=== PATIENT | female | born 2000 | race Caucasian/White ===

== ENCOUNTER 2022-01-05 22:53 | Emergency (ER) | payer OTHER, SELFPAY ==
[2022-01-05 23:04] VITALS: BP 115/54; PULSE 74; RESP 15; TEMP 36.5; O2SAT 99; BMI 23.1
--- NOTE | 2022-01-06 02:00 | ED.SKABFB ---
HPI - Skin/Abscess/Foreign Bdy General Chief complaint: Skin/Abscess/Foreign Body Stated complaint: Sting or bite on left foot Time Seen by Provider: 01/05/22 22:54 Source: patient Mode of arrival: Ambulatory Limitations: no limitations History of Present Illness HPI narrative: 21-year-old female nonsmoker without any chronic medical history presents for evaluation of a bite on her left foot followed by swelling of much of her left foot and itching. She denies any pain and did not see whatever bit her. She does state that about 1 week ago she was stung by a bee however and has on occasion had impressive reactions to these bites and stings. She denies any face, tongue, lip or throat swelling. She has no trouble swallowing or breathing and denies any wheeze or rash. Related Data Allergies Allergy/AdvReac Type Severity Reaction Status Date / Time No Known Drug Allergies Allergy Verified 01/05/22 23:07 Review of Systems Review of Systems Narrative: GENERAL: Denies chills, fatigue, malaise, fever, sweats. HEENT: Denies sinus pain, ear pain, sore throat, difficulty swallowing, dizziness. RESPIRATORY: Denies dyspnea, cough, wheezing, hemoptysis, sputum. CARDIOVASCULAR: Denies chest pain, palpitations, orthopnea, edema, GASTROINTESTINAL: Denies nausea, vomiting, abdominal pain, diarrhea, constipation, melena. : Denies dysuria, frequency, incontinence, hematuria, urinary retention. MUSCULOSKELETAL: denies weakness, joint pain, or bony pain SKIN: See HPI NEUROLOGIC: Denies weakness, headache, numbness, change in speech, confusion, seizures, incoordination. PSYCHIATRIC: No concerning psychosocial issues. 12 point review of systems is negative except for those stated above Patient History Social History Smoking Status: Never smoker Smoking Status: Never smoker alcohol intake frequency: 0-2 drinks per day Substance Use Type: does not use Exam Narrative Exam Narrative: GENERAL: [21] year old patient appears stated age. Well-developed patient, in mild distress. HEAD: Atraumatic. Normocephalic. EYES: Pupils equal round and reactive. Extraocular motions intact. No scleral icterus. No injection or drainage. ENT: Nose without bleeding, purulent drainage. Throat without erythema, tonsillar hypertrophy or exudate. Airway patent. NECK: Trachea midline. Non tender CARDIOVASCULAR: Regular rate and rhythm without murmurs, gallops, or rubs. RESPIRATORY: Clear to auscultation. Breath sounds equal bilaterally. No wheezes, rales, or rhonchi. GASTROINTESTINAL: Abdomen soft, non-tender, nondistended. EXTREMITIES: Left foot with erythema pruritus and swelling of the forefoot including toes. It is soft and nontender without induration or fluctuance. There are no obvious breaks in the skin but if she forcefully flexes her great toe you can see an area of pallor and slightly increased swelling where she thinks she was stung or bitten. There is no drainage or lymphangitis BACK: Nontender without deformity or crepitance. No flank tenderness. NEURO: AOx3. SKIN: No rash or erythema of visible areas Initial Vital Signs Initial Vital Signs: Vital Signs Temperature 97.7 F 01/05/22 23:04 Pulse Rate 74 01/05/22 23:04 Respiratory Rate 15 01/05/22 23:04 Blood Pressure 115/54 L 01/05/22 23:04 Pulse Oximetry 99 01/05/22 23:04 Oxygen Delivery Method 01/05/22 23:04 Course Vital Signs Vital signs: Vital Signs - 8 hr 01/05/22 23:04 Temperature 97.7 F Pulse Rate 74 Respiratory Rate 15 Blood Pressure 115/54 L Pulse Oximetry 99 Oxygen Delivery Method Room Air MDM - Skin/Abscess/Foreign Bdy MDM Narrative Medical decision making narrative: Patient with itching, swelling and redness after an insect bite of her left foot has no signs of anaphylaxis, tongue, face or lip swelling, difficulty swallowing or breathing. Infection considered but thought unlikely given lack of pain, lymphangitis. We discussed antibiotics versus antihistamines and agree that [id number] antihistamines, compression and elevation is most appropriate for now. She is given return precautions and has had questions answered to her apparent satisfaction Discharge Plan Departure Patient Disposition: Home Clinical Impression: Insect bites Instructions: DI for Insect Bites and Stings Activity Restrictions/Additional Instructions: *You have been diagnosed with [redness and swelling likely a reaction to bug bite *What to do: *Please consider the routine use of over the counter antihistamines over the next few days 1. H1 blockers: Benadryl (Diphenhydramine), Zyrtec (Cetirizine), Gayatri (Fexofenadine) or Claritin (Loratadine) along with, 2. H2 blockers: Famotidine or Cimetidine *If you can please avoid what triggered your reaction today *Please follow up with your primary care provider in 2-3 days, call for an appointment. Let them know you were seen in the Emergency Department and that we ask that you be seen in follow up. We will electronically transmit a record of today's note if your PCP is in our system * please consider wearing a compression sock and elevating her foot as much as possible over the next few days and I would expect this to continue to improve *Return to Emergency Department if you should have any new, worsening or concerning symptoms, such as swelling of tongue, throat, trouble breathing, or other concerning symptoms Visit Report Forms: Patient Portal/API
== END 2022-01-05 23:31 | disposition home or self-care (01) ==
PROVIDERS: Emergency Provider Emergency Medicine
DX: S90.862A Insect bite (nonvenomous), left foot, initial encounter (principal)
CPT/HCPCS: 99281

== ENCOUNTER → 2022-10-25 15:22 | Outpatient (CLI) | payer OTHER, SELFPAY ==
--- NOTE | 2022-10-25 | DI.MRI.S_ITS ---
PROCEDURE: MR LUMBAR SPINE WO CON INDICATIONS: Low back pain TECHNIQUE: Noncontrast sagittal T1 spin echo and T2 fast echo, sagittal STIR, and T2 fast spin echo through the lumbar spine. In cases with scoliosis, additional coronal T2 fast spin echo may be performed. COMPARISON: None. FINDINGS: Image quality: Excellent. Alignment and Curvature: There is normal bony alignment. Bone Marrow: Marrow is of normal overall signal. No acute vertebral body compression fractures. A benign hemangioma is noted in the S2 vertebral body. Spinal Cord: Conus medullaris terminates at the L1 level. Visualized cord demonstrates normal signal and size. Paraspinous Soft Tissues: No paravertebral masses. The paraspinous musculature is normal in bulk. Discs: No significant disc bulging, spinal canal stenosis, or neural foraminal narrowing is seen at any level in the lumbar spine. IMPRESSION: Lumbar spine MRI is within normal limits Approved by: Keyon Hutchins M.D. on 10/25/2022 at 22:17 .
== END ==
DX: M54.50 Low back pain, unspecified (principal)
CPT/HCPCS: 72148

== ENCOUNTER 2022-12-17 12:45 | Outpatient (RCR) | payer OTHER, SELFPAY ==
--- NOTE | 2022-11-19 22:32 | PT.OIE ---
Current Diagnoses Unspecified dyspareunia (11/19/22) Visit Care Team Role Provider Type Eric Mann Attending Provider Non-Staff Family Provider Primary Care Provider Referring Provider Specialty: Medical Address: [address] [place] [address], On license of [facility] Email: Physical Therapy Initial Evaluation PT-OP-A Visit Information Start: 11/18/22 16:28 Freq: Status: Active Protocol: Document 11/19/22 07:32 AMB (Rec: 11/19/22 08:23 AMB [id number]) Out-Patient Physical Therapy Visit Information Visit Information Visit Type Initial Evaluation Visit Start Time 07:30 Visit Stop Time 08:15 Total Visit Minutes 45 Visit Number 1 PT-OP-B Current Condition Start: 11/18/22 16:28 Freq: Status: Active Protocol: Document 11/19/22 07:32 AMB (Rec: 11/19/22 08:23 AMB [id number]) Current Condition History of Current Condition Onset Date 2.5 years ago Current Complaints dyspareunia History of Current Condition Notes dyspareunia is usually with deeper penetration. Didn 't really find a pattern with positions, has been a probelm with 2 different partners now. Sometimes can stop for a littel bit and pain would subside. Back pain started 4 years ago. Has had a lot of UTIs. Personal Factors Other Personal Factors That May Effect Multiple UTI history, low back Therapy/Recovery pain, current active duty PT-OP-I Pelvic Floor Start: 11/18/22 16:28 Freq: Status: Active Protocol: Document 11/19/22 07:32 AMB (Rec: 11/23/22 22:30 AMB [id number]) Pelvic Floor Assessment Urine Pelvic Floor Surgery No Leakage Cause Cough,Sneeze Pelvic Clock Pelvic Clock 12-3 Guarding,Tenderness,Tightness Pelvic Clock 3-6 Guarding,Tenderness,Tightness Pelvic Clock 6-9 Guarding,Tenderness,Tightness Pelvic Clock 9-12 Guarding,Tenderness,Tightness Pelvic Clock Other pt rated pain with moderate palpation pressure as 4/10 Contraction Ability Manual Muscle Testing Left 3 Manual Muscle Testing Right 3 Manual Muscle Testing Anterior 3 Manual Muscle Testing Posterior 3 PT-OP-T Assessment and Plan Start: 11/18/22 16:28 Freq: Status: Active Protocol: Document 11/19/22 07:32 AMB (Rec: 11/23/22 22:30 [facility] [id number]) Physical Therapy Assessment Rehab Potential Rehabilitation Potential Good Evaluation Complexity Number of Personal Factors/Comorbidities 1-2 Number of Body Systems Impaired 1-2 Clinical Presentation at Evaluation Stable Impairments Impairments Pain Goals Two Impairment HEP Retirement Goal (LTG) Carmella will be independent with a HEP including vaginal dilator , pelvic floor stretching and appropriate strengthening program. LTG Duration 10 weeks One Impairment dyspareunia Short Term Goal (STG) Pt will report 2/10 pain or less with internal vaginal palpation of levator ani bilaterally. STG Duration 4 weeks Retirement Goal (LTG) Pt will try tolerate the intercourse of her choice with pain of 1/10. LTG Duration 10 weeks Assessment Summary Assessment Carmella attends physical therapy with a multi year multiple partner history of dyspareunia , she also notes very occassional SHAYNE with cough/ sneeze. She does have a history of multiple UTIs, no childbirth history. She presented with pain bilateral although worse on the right with palpation of the levator ani. She was given a vaginal dilator with instruction in use. She does exercise regularly and reports that she does hip stretches consistently due to history of back pain. She will benefit from physical therapy to help her manage her dyspareunia symptoms and manage the pain and tightness in her pelvic floor. Physical Therapy Plan Frequency and Duration Frequency of Treatment 1x/Week Duration of treatment (weeks) 10 Plan of Care Start Date 11/19/22 Plan of Care End Date 01/28/23 Therapeutic Interventions Therapeutic Interventions Home Exercise Program,Manual Therapy,Neuromuscular Re- education,Self-Care/Home Management,Soft Tissue Mobilization,Therapeutic Activities,Therapeutic Exercises Modalities Biofeedback,Cold Pack/Ice Massage,Electric Stimulation, Hot Packs Next Visit Focus/Plan Next Note Type Treatment Note Next Visit Plan Manual therapy, reassess dilator, review SHAYNE tx
--- NOTE | 2022-11-19 22:33 | PT.OPPOC ---
Physical, Occupational & Speech Therapy At [facility] Current Diagnoses Unspecified dyspareunia (11/19/22) Visit Care Team Role Provider Type Eric Mann Attending Provider Non-Staff Family Provider Primary Care Provider Referring Provider Specialty: Medical Address: [address] [place] [address], [id number] Email: Plan Of Care PT-OP-T Assessment and Plan Start: 11/18/22 16:28 Freq: Status: Active Protocol: Document 11/19/22 07:32 AMB (Rec: 11/23/22 22:30 AMB [id number]) Physical Therapy Assessment Rehab Potential Rehabilitation Potential Good Evaluation Complexity Number of Personal Factors/Comorbidities 1-2 Number of Body Systems Impaired 1-2 Clinical Presentation at Evaluation Stable Impairments Impairments Pain Goals Two Impairment HEP Usp Goal (LTG) Carmella will be independent with a HEP including vaginal dilator , pelvic floor stretching and appropriate strengthening program. LTG Duration 10 weeks One Impairment dyspareunia Short Term Goal (STG) Pt will report 2/10 pain or less with internal vaginal palpation of levator ani bilaterally. STG Duration 4 weeks [employer] Operator Goal (LTG) Pt will try tolerate the intercourse of her choice with pain of 1/10. LTG Duration 10 weeks Assessment Summary Assessment Carmella attends physical therapy with a multi year multiple partner history of dyspareunia , she also notes very occassional SHAYNE with cough/ sneeze. She does have a history of multiple UTIs, no childbirth history. She presented with pain bilateral although worse on the right with palpation of the levator ani. She was given a vaginal dilator with instruction in use. She does exercise regularly and reports that she does hip stretches consistently due to history of back pain. She will benefit from physical therapy to help her manage her dyspareunia symptoms and manage the pain and tightness in her pelvic floor. Physical Therapy Plan Frequency and Duration Frequency of Treatment 1x/Week Duration of treatment (weeks) 10 Plan of Care Start Date 11/19/22 Plan of Care End Date 01/28/23 Therapeutic Interventions Therapeutic Interventions Home Exercise Program,Manual Therapy,Neuromuscular Re- education,Self-Care/Home Management,Soft Tissue Mobilization,Therapeutic Activities,Therapeutic Exercises Modalities Biofeedback,Cold Pack/Ice Massage,Electric Stimulation, Hot Packs Next Visit Focus/Plan Next Note Type Treatment Note Next Visit Plan Manual therapy, reassess dilator, review SHAYNE love Plan of Care Dates Plan of Care Start Date 11/19/22 Plan of Care End Date 01/28/23 Electronically Signed by: Anna Peña, PT 11/23/22 9039 If you are in agreement with this Plan of Care, please return a signed and dated copy. I have reviewed this Plan of Care and certify that the skilled therapy services above are required to meet the patient?s needs. Physician Signature Date Printed Name and Credentials Clinical Instructor Signature Printed Name and Credentials
--- NOTE | 2022-11-25 15:14 | PT.OTN ---
Current Diagnoses Unspecified dyspareunia (11/25/22) Physical Therapy Treatment Note PT-OP-A Visit Information Start: 11/18/22 16:28 Freq: Status: Active Protocol: Document 11/25/22 08:17 AMB (Rec: 11/25/22 08:59 AMB [id number]) Out-Patient Physical Therapy Visit Information Visit Information Visit Type Treatment Note Visit Start Time 08:15 Visit Stop Time 09:00 Total Visit Minutes 45 Visit Number 2 PT-OP-B Current Condition Start: 11/18/22 16:28 Freq: Status: Active Protocol: Document 11/19/22 07:32 AMB (Rec: 11/19/22 08:23 AMB [id number]) Current Condition History of Current Condition Onset Date 2.5 years ago Current Complaints dyspareunia History of Current Condition Notes dyspareunia is usually with deeper penetration. Didn 't really find a pattern with positions, has been a probelm with 2 different partners now. Sometimes can stop for a littel bit and pain would subside. Back pain started 4 years ago. Has had a lot of UTIs. Personal Factors Other Personal Factors That May Effect Multiple UTI history, low back Therapy/Recovery pain, current active duty PT-OP-C Subjective Start: 11/18/22 16:28 Freq: Status: Active Protocol: Document 11/25/22 08:17 AMB (Rec: 11/25/22 08:59 AMB [id number]) OP-PT Subjective Patient Comments Patient Comments Pt reports back went out on Friday did take muscles relaxants PT-OP-I Pelvic Floor Start: 11/18/22 16:28 Freq: Status: Active Protocol: Document 11/19/22 07:32 AMB (Rec: 11/23/22 22:30 AMB [id number]) Pelvic Floor Assessment Urine Pelvic Floor Surgery No Leakage Cause Cough,Sneeze Pelvic Clock Pelvic Clock 12-3 Guarding,Tenderness,Tightness Pelvic Clock 3-6 Guarding,Tenderness,Tightness Pelvic Clock 6-9 Guarding,Tenderness,Tightness Pelvic Clock 9-12 Guarding,Tenderness,Tightness Pelvic Clock Other pt rated pain with moderate palpation pressure as 4/10 Contraction Ability Manual Muscle Testing Left 3 Manual Muscle Testing Right 3 Manual Muscle Testing Anterior 3 Manual Muscle Testing Posterior 3 PT-OP-Q Treatments Start: 11/18/22 16:28 Freq: Status: Active Protocol: Document 11/25/22 08:15 AMB (Rec: 11/26/22 15:14 AMB [id number]) Manual Therapy Treatment Soft Tissue Mobilization levator and obturator Mobilization Type Myofascial Release,Trigger Point Release Intensity/Depth Moderate Body Position Hooklying Comments tolerated well PT-OP-T Assessment and Plan Start: 11/18/22 16:28 Freq: Status: Active Protocol: Document 11/25/22 08:17 AMB (Rec: 11/25/22 08:59 AMB [id number]) Physical Therapy Assessment Goals Two Impairment HEP Safety Companion Goal (LTG) Carmella will be independent with a HEP including vaginal dilator , pelvic floor stretching and appropriate strengthening program. LTG Duration 10 weeks One Impairment dyspareunia Short Term Goal (STG) Pt will report 2/10 pain or less with internal vaginal palpation of levator ani bilaterally. STG Duration 4 weeks Detention Goal (LTG) Pt will try tolerate the intercourse of her choice with pain of 1/10. LTG Duration 10 weeks Assessment Summary Assessment Carmella continues to have active trigger points in bilateral levator ani and obturators. Encouraged her in self trigger point release, can consider pelvic floor wand if that would be helpful vs manual release in shower with one leg up on bathtub. Physical Therapy Plan Frequency and Duration Frequency of Treatment 1x/Week Duration of treatment (weeks) 10 Plan of Care Start Date 11/19/22 Plan of Care End Date 01/28/23 Therapeutic Interventions Therapeutic Interventions Home Exercise Program,Manual Therapy,Neuromuscular Re- education,Self-Care/Home Management,Soft Tissue Mobilization,Therapeutic Activities,Therapeutic Exercises Modalities Biofeedback,Cold Pack/Ice Massage,Electric Stimulation, Hot Packs Next Visit Focus/Plan Next Note Type Treatment Note Next Visit Plan Manual therapy, reassess dilator, review SHAYNE tx
--- NOTE | 2022-12-17 09:03 | PT.OTN ---
Current Diagnoses Unspecified dyspareunia (12/17/22) Physical Therapy Treatment Note PT-OP-A Visit Information Start: 11/18/22 16:28 Freq: Status: Active Protocol: Document 12/17/22 12:47 AMB (Rec: 12/17/22 13:34 AMB [id number]) Out-Patient Physical Therapy Visit Information Visit Information Visit Type Treatment Note Visit Start Time 12:45 Visit Stop Time 01:30 Total Visit Minutes 45 Visit Number 3 PT-OP-B Current Condition Start: 11/18/22 16:28 Freq: Status: Active Protocol: Document 11/19/22 07:32 AMB (Rec: 11/19/22 08:23 AMB [id number]) Current Condition History of Current Condition Onset Date 2.5 years ago Current Complaints dyspareunia History of Current Condition Notes dyspareunia is usually with deeper penetration. Didn 't really find a pattern with positions, has been a probelm with 2 different partners now. Sometimes can stop for a littel bit and pain would subside. Back pain started 4 years ago. Has had a lot of UTIs. Personal Factors Other Personal Factors That May Effect Multiple UTI history, low back Therapy/Recovery pain, current active duty PT-OP-C Subjective Start: 11/18/22 16:28 Freq: Status: Active Protocol: Document 12/17/22 08:39 AMB (Rec: 12/24/22 08:50 AMB [id number]) OP-PT Subjective Patient Comments Patient Comments Pt reports she has been using the dilator. her period was actually less painful than usual this last month. She is hopeful the pain will be reduced with manual assessment . She is not currently in a relationship so she can't be sure about intercourse. PT-OP-I Pelvic Floor Start: 11/18/22 16:28 Freq: Status: Active Protocol: Document 11/19/22 07:32 AMB (Rec: 11/23/22 22:30 AMB [id number]) Pelvic Floor Assessment Urine Pelvic Floor Surgery No Leakage Cause Cough,Sneeze Pelvic Clock Pelvic Clock 12-3 Guarding,Tenderness,Tightness Pelvic Clock 3-6 Guarding,Tenderness,Tightness Pelvic Clock 6-9 Guarding,Tenderness,Tightness Pelvic Clock 9-12 Guarding,Tenderness,Tightness Pelvic Clock Other pt rated pain with moderate palpation pressure as 4/10 Contraction Ability Manual Muscle Testing Left 3 Manual Muscle Testing Right 3 Manual Muscle Testing Anterior 3 Manual Muscle Testing Posterior 3 PT-OP-Q Treatments Start: 11/18/22 16:28 Freq: Status: Active Protocol: Document 12/17/22 08:39 AMB (Rec: 12/24/22 08:50 AMB [id number]) Manual Therapy Treatment Soft Tissue Mobilization levator and obturator Mobilization Type Myofascial Release,Trigger Point Release Intensity/Depth Moderate Body Position Hooklying Comments tolerated well PT-OP-T Assessment and Plan Start: 11/18/22 16:28 Freq: Status: Active Protocol: Document 12/17/22 12:47 AMB (Rec: 12/17/22 13:34 AMB [id number]) Physical Therapy Assessment Goals Two Impairment HEP Senior Living Goal (LTG) Carmella will be independent with a HEP including vaginal dilator , pelvic floor stretching and appropriate strengthening program. LTG Duration 10 weeks One Impairment dyspareunia Short Term Goal (STG) Pt will report 2/10 pain or less with internal vaginal palpation of levator ani bilaterally. STG Duration MET Senior Living Goal (LTG) Pt will try tolerate the intercourse of her choice with pain of 1/10. LTG Duration 10 weeks Assessment Summary Assessment Carmella had less pain with palpation today. Pt did seem to have a history of urge incontinence, but this has improved, and pt not significantly concerned about it at this point. Pt happy with improvement up to this point and ready for discharge. Significnatly less pain with palpation, bu thas not tried intercourse yet. Physical Therapy Plan Frequency and Duration Frequency of Treatment 1x/Week Duration of treatment (weeks) 10 Plan of Care Start Date 11/19/22 Plan of Care End Date 01/28/23 Therapeutic Interventions Therapeutic Interventions Home Exercise Program,Manual Therapy,Neuromuscular Re- education,Self-Care/Home Management,Soft Tissue Mobilization,Therapeutic Activities,Therapeutic Exercises Modalities Biofeedback,Cold Pack/Ice Massage,Electric Stimulation, Hot Packs Discharge Physical Therapy Discharge Reasons Goals Met Discharge Comments Pt knows she can return with new referral if she experiences pain with intercourse in the future.
== END 2022-12-26 16:24 | disposition home or self-care (01) ==
LOC: PHYS 12:45
DX: N94.10 Unspecified dyspareunia (principal)
CPT/HCPCS: 97140; 97161

== ENCOUNTER → 2024-06-21 12:30 | Outpatient (CLI) | payer OTHER, SELFPAY ==
--- NOTE | 2024-06-21 12:31 | DI.ECHO.S_ITS ---
[facility]---------+ [facility] : : [address] : : [place] : : [id number] : : Phone: [phone] Echocardiogram Report + + :Name: SERAFIN OLIVEROS Study Date: 06/21/2024 Height: 64 in : :Hospital ReadingLocation: Weight: 140 lb : : Gender: Female BSA: 1.7 m2 : :: 2000 Age: 23 yrs BP: 108/67 mmHg: :Reason For Study: ATRIOVENTRICULAR BLOCK, FIRST DEGREE : :Ordering Physician: CHEYANNE, : :KERVIN Performed By: Camilla Reardon : :Referring: KERVIN EDWADR : + + Interpretation Summary 1) Normal left ventricular thickness, size, wall motion, and systolic function (EF 55-60%). 2) Normal right ventricular size and function. 3) No significant valvular abnormalities. 4) No prior Echo available for comparison. Procedure: A two-dimensional transthoracic echocardiogram with color flow and Doppler was performed. The study quality was technically adequate. There is no prior echocardiogram noted for this patient. The patient was in sinus rhythm with heart rates between 66-72 bpm during the exam. Left Ventricle: The left ventricle is normal in size and wall thickness. The ejection fraction is estimated to be 55-60%. Left ventricular systolic function appears normal without focal wall motion abnormalities. Diastolic parameters suggest probable normal left ventricular diastolic function and normal filling pressures. Right Ventricle: The right ventricle is normal in size and function. Atria: The left atrial size is normal. Right atrial size is normal. There is no Doppler evidence for an interatrial shunt. Mitral Valve: The mitral valve leaflets appear to open well. There is trace mitral regurgitation. Aortic Valve: The aortic valve is trileaflet. The aortic valve opens well. There is no aortic valve stenosis. No aortic regurgitation is present. Tricuspid Valve: The tricuspid valve leaflets are thin and pliable. There is mild tricuspid regurgitation. The right ventricular systolic pressure is estimated to be at least 21 mmHg based on an estimated right atrial pressure of 3 mm Hg. Pulmonic Valve: The pulmonic valve leaflets are thin and pliable; valve motion is normal. There is trace pulmonic regurgitation. Great Vessels: The aortic root is normal size. The dimensions of the ascending aorta are normal. The IVC is of normal diameter and collapses greater than 50% with a sniff. This suggests a low right atrial pressure of 3 mm Hg. Pericardium/ Pleura There is no pericardial effusion. There is no pleural effusion. MMode/2D Measurements & Calculations LVIDd: 4.6 cm LVOT diam: 2.0 cm LVIDs: 3.0 cm Ao root diam: 2.5 cm FS: 34.7 % asc Aorta Diam: 2.6 cm EPSS: 0.37 cm Ao Arch Diam (Prox Trans): 2.1 cm IVSd: 0.63 cm LVPWd: 0.69 cm LV reddy. diameter/BSA (cm/m^2): 2.8 LV sys. diameter/BSA (cm/m^2): 1.8 LA A2 area: 15.8 cm2 RA long axis: 4.8 cm LA A4 area: 18.9 cm2 RA area: 16.6 cm2 LA length (vol): 5.0 cm RA vol: 48.4 ml LA vol: 50.4 ml RA : 28.8 ml/m2 LA vol index: 30.0 ml/m2 IVC diam: 2.0 cm RVD1 (basal): 3.5 cm RVD2 (mid): 3.1 cm TAPSE: 1.9 cm Doppler Measurements & Calculations Ao V2 max: 120.8 cm/sec LVOT Max Cristóbal: 92.0 cm/sec Ao V2 mean: 83.7 cm/sec LV V1 max P.4 mmHg Ao max P.8 mmHg LV V1 VTI: 19.2 cm Ao mean P.1 mmHg JANICE(I,D): 2.5 cm2 Ao V2 VTI: 24.8 cm JANICE(V,D): 2.4 cm2 sev ratio: 0.77 JANICE indexed to BSA (cm^2/m^2): 1.5 MV E max cristóbal: 80.1 cm/sec TR max cristóbal: 209.7 cm/sec MV A max cristóbal: 56.2 cm/sec TR max P.6 mmHg MV E/A: 1.4 PA V2 max: 90.3 cm/sec Med Peak E' Cristóbal: 14.0 cm/sec PA V2 mean: 67.8 cm/sec E/E' med: 5.7 PA mean P.0 mmHg Lat Peak E' Cristóbal: 19.6 cm/sec PA pr(Accel): 5.4 mmHg E/E' lat: 4.1 E/e' average: 4.9 MV dec time: 0.15 sec SV(LVOT): 61.7 ml Reading Physician:01:[id number] PM
== END ==
PROVIDERS: Referring Provider Orthopaedic Surgery; Visit Provider Orthopaedic Surgery
DX: I07.1 Rheumatic tricuspid insufficiency (principal); I44.0 Atrioventricular block, first degree
CPT/HCPCS: 93306